=== PATIENT | female | born 1985 | race Caucasian/White ===

== ENCOUNTER 2018-05-03 17:36 | Emergency (ER) | payer BC ==
--- NOTE | 2018-05-03 17:54 | PDOC ---
Rapid Medical Evaluation Time Seen by Provider: 05/03/18 17:51 Medical Evaluation: Allergies Allergy/AdvReac Type Severity Reaction Status Date / Time azithromycin Allergy Verified 05/01/18 22:53 05/03/18 17:52 Pt presents to the ED to have a wound check. Pt had abscess drained to the R axilla two days ago. Pt. currently taking bactrim and keflex. No fevers. Exam: AAOX3, breathing easily, afebrile Orders: Nothing Pt to proceed to the ED for further evaluation Discharge Disposition - Diagnosis Wound check, abscess - Referrals - Patient Instructions - Post Discharge Activity
[2018-05-03 17:59] VITALS: BP 113/73; PULSE 82; TEMP 98.6; BMI 34.3
--- NOTE | 2018-05-03 18:11 | PDOC ---
Suture Removal/Wound Check HPI - History of Present Illness Chief Complaint: Wound Stated Complaint: WOUND CHECK Time Seen by Provider: 05/03/18 17:51 History Source: Yes: Patient Treated at: [facility] Date of Last ED visit: 05/01/18 - Previous ED Treatment Type of procedure performed on last visit: Yes: I&D of Abscess Past History - Past Medical History Allergies/Adverse Reactions: Allergies Allergy/AdvReac Type Severity Reaction Status Date / Time azithromycin Allergy Verified 05/03/18 17:51 Home Medications: Ambulatory Orders Sulfamethoxazole/Trimethoprim [Bactrim Oral Suspension -] 20 ml PO BID #280 ml 05/02/18 Asthma: Yes CVA: No COPD: No DVT: No GI Disorders: Yes (GERD) - Surgical History Cholecystectomy: Yes - Immunization History Immunization Up to Date: Yes - Suicide/Smoking/Psychosocial Hx Smoking History: Never smoked Have you smoked in the past 12 months: No Hx Alcohol Use: No Drug/Substance Use Hx: No Substance Use Type: None Suture Removal/Wound Check PE - Physical Exam Laceration/Wound Check Symptoms: reports: Improved Current Severity Level: Mild Maximum Severity Level: Mild Comments: 05/03/18 18:13 well healing abscess to R axilla, no purulent drainage on packing removal, no e/ o re-accumulation *Review of Systems - Review of Systems Constitutional: No: Chills, Fever *Physical Exam - Vital Signs Last Vital Signs Temp Pulse Resp BP Pulse Ox 98.6 F 82 18 113/73 100 05/03/18 17:52 05/03/18 17:52 05/03/18 17:52 05/03/18 17:52 05/03/18 17:52 Medical Decision Making - Medical Decision Making 05/03/18 18:11 32 yo female, no past medical history, here for wound check of abscess to right axilla. Patient seen in ED 2 days ago and status post I&D with packing placed. On Bactrim. Of note, wound culture so far positive for presumptive MSSA, sensitivities pending. Patient states pain has decreased and no fever or chills. Patient well-appearing and stable in no apparent distress. Packing was removed with only small amount of bloody drainage. No evidence of re- accumulation. Local wound dressing in ER, no need for repacking at this time. Patient stable for discharge to complete antibiotics. Reasons to return discussed with patient *DC/Admit/Observation/Transfer Diagnosis at time of Disposition: Wound check, abscess - Discharge Dispostion Disposition: HOME Condition at time of disposition: Good - Referrals Referrals: Maximiliano Ramirez MD [Primary Care Provider] - - Patient Instructions Additional Instructions: Your wound appears to be healing well at this time. Continue to keep wound covered until it starts to scab over. Take your antibiotics as prescribed and return to ER if symptoms worsen - Post Discharge Activity
--- NOTE | 2018-05-03 18:25 | PDOC ---
*Physical Exam - Vital Signs Last Vital Signs Temp Pulse Resp BP Pulse Ox 98.6 F 82 18 113/73 100 05/03/18 17:52 05/03/18 17:52 05/03/18 17:52 05/03/18 17:52 05/03/18 17:52 *DC/Admit/Observation/Transfer Diagnosis at time of Disposition: Wound check, abscess - Discharge Dispostion Disposition: HOME Condition at time of disposition: Good - Referrals Referrals: Maximiliano Ramirez MD [Primary Care Provider] - - Patient Instructions Additional Instructions: Your wound appears to be healing well at this time. Continue to keep wound covered until it starts to scab over. Take your antibiotics as prescribed and return to ER if symptoms worsen - Post Discharge Activity
== END 2018-05-03 18:39 | disposition home or self-care (01) ==
LOC: JERFT 17:36 → JER 17:36 → JERFT 18:39
DX: Z48.01 Encounter for change or removal of surgical wound dressing (principal)
CPT/HCPCS: 99281-25